=== PATIENT | male | born 1985 | race Caucasian/White ===

== ENCOUNTER 2019-04-14 14:46 | Emergency (ER) | payer MEDICAID, OTHER ==
[~2019-04-14] VITALS: Ht 182.9 cm; Wt 77.8 kg
[2019-04-14 18:04] VITALS: BP 146/99
== END 2019-04-14 19:00 | disposition home or self-care (01) ==
LOC: ED 18:45
DX: R07.89 Other chest pain (principal); M25.522 Pain in left elbow; M54.2 Cervicalgia; G89.29 Other chronic pain; F10.20 Alcohol dependence, uncomplicated; F17.200 Nicotine dependence, unspecified, uncomplicated
CPT/HCPCS: 36415; 71045; 73080; 80053; 83605; 83735; 83880; 84436; 84443; 84484; 85025; 93005; 99284; J7030